=== PATIENT | male | born 1990 ===

== ENCOUNTER 2021-02-17 06:05 | Emergency (ER) | payer OTHER ==
[2021-02-17 06:31] VITALS: BP 132/91
[2021-02-17] MEDS ORDERED: IBUPROFEN 600 MG TAB PO ONE (08:15)
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
== END 2021-02-17 09:20 | disposition home or self-care (01) ==
LOC: ED 06:05
DX: S00.83XA Contusion of other part of head, initial encounter (principal); S50.02XA Contusion of left elbow, initial encounter; S50.312A Abrasion of left elbow, initial encounter; V89.2XXA Person injured in unspecified motor-vehicle accident, traffic, initial encounter; Y93.89 Activity, other specified; Y92.488 Other paved roadways as the place of occurrence of the external cause; Y99.8 Other external cause status
CPT/HCPCS: 99283